=== PATIENT | female | born 1975 | race Hispanic/Latino ===

== ENCOUNTER 2025-03-06 07:27 | Emergency (ER) | payer BC, OTHER ==
[~2025-03-06] VITALS: Ht 160 cm; Wt 72.6 kg
--- NOTE | 2025-03-06 07:47 | NUR ---
suicidie precautions initiated. belongings collected by security. one to one sitter dariel martinez.
[2025-03-06] MEDS ORDERED: diazePAM 2 MG TAB PO ONE (08:00)
--- NOTE | 2025-03-06 08:02 | NUR ---
PATIENT'S MEDICATIONS SENT TO PHARMACY
[2025-03-06 08:03] LABS: NUCLEATED RED BLOOD CELLS 0.0 % (0.0-0.19); PLATELET COUNT (AUTO) 395.0 K/uL (130-400); RED BLOOD CELL COUNT(AUTO) 4.29 MIL/uL (4.00-5.50); RED CELL DISTRIBUTION WIDTH 16.3 % (11.0-15.5); WHITE BLOOD COUNT (AUTO) 4.0 K/uL (4.8-10.8)
[2025-03-06 08:19] LABS: CREATININE 1.0 mg/dL (0.5-1.0); GLOMERULAR FILTR. RATE CALC 69 mL/min (>90); GLUCOSE,RANDOM 96 mg/dL (70-105); SODIUM SERUM 140 mmol/L (136-145); UREA NITROGEN, BLOOD 14 mg/dL (7-18)
[2025-03-06 08:22] LABS: APPEARANCE,URINE CLEAR (CLEAR); GLUCOSE, URINE (UA) NEGATIVE (NEGATIVE); LEUKOCYTE ESTERASE ,URINE NEGATIVE Leu/uL (NEGATIVE); NITRATE,URINE NEGATIVE (NEGATIVE); OCCULT BLOOD,URINE NEGATIVE (NEGATIVE)
[2025-03-06 08:24] LABS: ALCOHOL, BLOOD 4 mg/dL (0-10); CREATINE KINASE, TOTAL 208 U/L (21-232)
[2025-03-06 08:25] LABS: ADD UA MICROSCOPIC NO
[2025-03-06 08:27] LABS: HCG,QUALITATIVE URINE NEGATIVE (NEGATIVE)
[2025-03-06 08:29] LABS: AMPHET/METH SCREEN,URINE NEGATIVE (NEGATIVE); BARBITURATE SCREEN, URINE NEGATIVE (NEGATIVE); CANNABINOID SCREEN,URINE NEGATIVE (NEGATIVE); COCAINE SCREEN,URINE NEGATIVE (NEGATIVE)
--- NOTE | 2025-03-06 08:38 | NUR ---
[facility] contacted for screener
--- NOTE | 2025-03-06 08:45 | ERN ---
General Chief Complaint: Suicidal Ideation Stated Complaint: SI Time Seen by MD: 07:32 Source: patient History of Present Illness Initial Comments My Patient, 49-year-old female, presented to the emergency department with complaints of worsening depression. She states that she was going to work but she felt extremely overwhelmed and decided to seek care in the ED. She takes b upropion for her depression but it is not helping her. Due to recent life stressors including passing away of a member of family, she has been recently depressed and unable to sleep at night. Timing/Duration: getting worse Severity: moderate Allergies: Coded Allergies: No Known Drug Allergies (Unverified Allergy, Unknown, 03/06/25) Past Medical History Past Medical History: Anxiety, Depression Past Surgical History: None Female( History) LMP: Feb 20, 2025 : 2 Para: 2 Aborts: 0 Constitutional: (-) chills, (-) diaphoresis, (-) fever, (-) malaise, (-) weakness, (-) other documentation EENTM: (-) eye pain, (-) blurred vision, (-) tearing, (-) double vision, (-) ear pain, (-) ear discharge, (-) nose pain, (-) nose congestion, (-) throat pain, (-) Throat swelling, (-) mouth pain, (-) tooth pain, (-) mouth swelling, (-) other documentation Respiratory: (-) cough, (-) orthopnea, (-) short of breath, (-) stridor, (-) wheezing, (-) other documentation Cardiovascular: (-) chest pain, (-) edema, (-) palpitations, (-) syncope, (-) dyspnea on exertion, (-) other documentation Gastrointestinal/Abdominal: (-) nausea, (-) vomiting, (-) diarrhea, (-) abdominal pain, (-) abdominal distention, (-) constipation, (-) rectal bleeding, (-) dark stool/melena, (-) other documentation Genitourinary: (-) vaginal discharge, (-) vaginal bleeding, (-) dysuria, (-) frequency, (-) hematuria, (-) pain, (-) other documentation Musculoskeletal: (-) Neck pain, (-) back pain, (-) Flank Pain, (-) joint pain, (-) joint swelling, (-) muscle pain, (-) muscle stiffness, (-) gout, (-) other documentation Skin: (-) laceration, (-) contusion, (-) abrasion, (-) abscess, (-) rash, (-) change in color, (-) change in hair, (-) change in nails, (-) diaphoresis, (-) dryness, (-) other documentation Neuro: (-) altered mental status, (-) headache, (-) syncope, (-) paralysis, (-) numbness, (-) seizure, (-) pre-existing deficit, (-) tremors, (-) weakness, (-) dizziness, (-) slurred speech, (-) vertigo, (-) other documentation Psych: (+) depression, (+) anxiety, (+) emotional problems Hematologic/Lymphatic: (-) anemia, (-) blood clots, (-) easy bleeding, (-) easy bruising, (-) swollen glands, (-) other documentation Physical Exam General Appearance: (+) moderate distress Orientation: (+) alert, (+) oriented x 3 Head/Face Trauma: No Eye: bilateral eye normal inspection Ear, Nose, Throat: (+) hearing grossly normal, (+) normal ENT inspection, (+) moist mucous membraine Neck: (+) normal inspection, (+) supple, (+) full range of motion Respiratory: (+) chest non-tender, (+) lungs clear, (+) well ventilated Heart: (+) regular, (+) no gallop Vascular: (+) no edema Gastrointestinal: (+) soft, (+) non-tender Back: (+) normal inspection, (+) no CVA tenderness, (+) no vertebral tenderness Extremities: (+) normal range of motion, (+) non-tender, (+) normal inspection Neurologic/Psychiatric: (+) normal speech, (+) no motor defecits, (+) no sensory deficits, (+) normal gait, (+) other documentation (Depressed and anxious mood) Skin: (+) normal color Results Laboratory and Microbiology Lab and Micro Result Laboratory Tests Test 03/06/25 07:40 03/06/25 07:59 Urine Color YELLOW (YELLOW) Urine Appearance CLEAR (CLEAR) Urine pH 5.5 (5.0-8.0) Urine Specific Boykins 1.026 (1.001-1.031) Urine Protein NEGATIVE mg/dL (NEGATIVE) Urine Glucose (UA) NEGATIVE mg/dL (NEGATIVE) Urine Ketones NEGATIVE mg/dL (NEGATIVE) Urine Occult Blood NEGATIVE (NEGATIVE) Urine Nitrate NEGATIVE (NEGATIVE) Urine Bilirubin NEGATIVE mg/dL (NEGATIVE) Urine Urobilinogen 0.2 mg/dL (0.2-1.0) Urine Leukocyte Esterase NEGATIVE Keena/uL Urine HCG, Qualitative NEGATIVE (NEGATIVE) Urine Opiates Screen NEGATIVE (NEGATIVE) Urine Barbiturates Screen NEGATIVE (NEGATIVE) Urine Phencyclidine Screen NEGATIVE (NEGATIVE) Urine Amphetamines Screen NEGATIVE (NEGATIVE) Urine Benzodiazepines Screen NEGATIVE (NEGATIVE) Urine Cocaine Screen NEGATIVE (NEGATIVE) Urine Marijuana (THC) Screen NEGATIVE (NEGATIVE) White Blood Count 4.0 K/uL (4.8-10.8) L Red Blood Count 4.29 MIL/uL (4.00-5.50) Hemoglobin 10.8 g/dL (12.0-16.0) L Hematocrit 33.4 % (36-48) L Mean Corpuscular Volume 77.9 fL (79-99) L Mean Corpuscular Hemoglobin 25.2 pg (27.0-33.0) L Mean Corpuscular Hemoglobin Concent 32.3 g/dL (32.0-36.0) Red Cell Distribution Width 16.3 % (11.0-15.5) H Platelet Count 395 K/uL (130-400) Mean Platelet Volume 10.2 fL (7.5-10.5) Nucleated Red Blood Cells 0.0 % (0.0-0.19) Sodium Level 140 mmol/L (136-145) Potassium Level 3.9 mmol/L (3.5-5.1) Chloride Level 103 mmol/L (101-111) Carbon Dioxide Level 27 mmol/L (21-32) Blood Urea Nitrogen 14 mg/dL (7-18) Creatinine 1.0 mg/dL (0.5-1.0) Glomerular Filtration Rate Calc 69 mL/min (>90) Random Glucose 96 mg/dL (70-105) Total Calcium 8.5 mg/dL (8.5-10.1) Total Creatine Kinase 208 U/L (21-232) Salicylates Level < 2.8 mg/dL (2.8-20.0) L Acetaminophen Level < 1 mcg/mL (10-30) L Serum Alcohol 4 mg/dL (0-10) Labs Reviewed?: Yes MDM MDM: Differential diagnosis: Psychiatric illness, chronic depression, suicidal ideation, Rationale: Tests considered and ordered secondary to shared decision making inc lude: Previous outside records reviewed: Old ER visits. Risk of complication and/or morbidity or mortality of patient management: None Medications-Per medication reconciliation Need for hospitalization: Patient does not meet criteria for hospitalization. Need for emergency major/minor surgery: No Patient is a 49-year-old female coming in complaining of depression and anxiety. Per patient this has been ongoing for several weeks. Patient was evaluated by psychiatric facility does not meet criteria for inpatient psych. Per psychiatric facility patient is a follow up with the [facility] the have medication evaluated and treated her accordingly ED Course Orders Procedure Category Date Status Time Suicide Precautions CPOE 03/06/25 Transmitted 07:48 Drug Screen Urine LAB 03/06/25 Complete 07:48 Cbc Without LAB 03/06/25 Complete Differential 07:48 Alcohol, Blood LAB 03/06/25 Complete 07:48 Salicylate LAB 03/06/25 Complete 07:48 Acetaminophen LAB 03/06/25 Complete 07:48 Urinalysis Profile LAB 03/06/25 Complete 07:48 ,Urine Test LAB 03/06/25 Complete 07:48 Creatine Kinase, Total LAB 03/06/25 Complete 07:48 Basic Metabolic Panel LAB 03/06/25 Complete 07:48 Diazepam 2 Mg Tab PHA 03/06/25 Complete (Valium 2 Mg Tab) 08:00 Hydroxyzine 25mg Tab PHA 03/06/25 Complete (Atarax 25mg Tab) 08:00 Current Medications Medications (Trade) Dose Ordered Sig/Prashant Route PRN Reason Start Time Stop Time Status Last Admin Dose Admin Diazepam (VALium 2 mg Tab) 2 mg ONCE ONCE PO 03/06/25 08:00 03/06/25 08:33 DC Hydroxyzine HCl (ATArax 25MG TAB) 25 mg ONCE ONCE PO 03/06/25 08:00 03/06/25 08:01 DC 03/06/25 08:37 Vital Signs Date Time Temp Pulse Resp B/P (MAP) Pulse Ox O2 Delivery O2 Flow Rate FiO2 03/06/25 11:23 97.9 65 16 106/79 99 Room Air* 0 21 03/06/25 09:01 97.9 59 12 113/70 98 Room Air* 0 21 03/06/25 07:31 97.2 90 18 117/78 97 DX & DISP Disposition: Discharge Departure Impression: Primary Impression: Psychiatric illness Condition: Stable Additional Instructions: FOLLOW-UP WITH PRIMARY CARE PROVIDER IN 1 TO 2 DAYS. TAKE MEDICATIONS DIRECTED HERE IN THE EMERGENCY ROOM. OKAY TO CONTINUE HOME MEDICATIONS UNLESS OTHERWISE DISCUSSED DURING YOUR VISIT IN THE EMERGENCY ROOM TODAY. RETURN TO YOUR NEAREST EMERGENCY ROOM IF SYMPTOMS WORSEN OR IF THERE IS NO IMPROVEMENT. C ALL 911 IF YOU NEED IMMEDIATE ASSISTANCE. TAKE TYLENOL [id number] NEEDED AND IF NO CONTRAINDICATIONS ARE PRESENT. INCREASE ORAL HYDRATION. A WOUND CULTURE OR URINE CULTURE WAS ORDERED HERE IN THE EMERGENCY ROOM DEPARTMENT PLEASE FOLLOW-UP WITH PRIMARY CARE PROVIDER AND ADVISE THEM TO GET REPORTS FROM OUR FACILITY. IF YOU HAD ANY CHARLI WRAP/SPLINTS THAT WERE APPLIED HERE, PLEASE DO NOT REMOVE THEM UNTIL YOU SEE YOUR PRIMARY CARE OR SPECIALTY. Referrals: Referrals: SELF,REFERRAL (PCP) BIBIANA PETERS MD Time of Disposition: 12:02 AVELINO ZARATE MD Mar 06, 2025 08:45 MALATHI GARZA MD Mar 06, 2025 12:02
--- NOTE | 2025-03-06 10:25 | NUR ---
tropical screener Dione at bedside
--- NOTE | 2025-03-06 11:58 | NUR ---
PER SCREENER PATIENT DOES NOT MEET CRITERIA FOR PLACEMENT. CLEARED BY [facility]. DR GARZA MADE AWARE.
[2025-03-06 12:02] VITALS: BP 96/69; PULSE 64; RESP 14; TEMP 97.9; O2SAT 99
--- NOTE | 2025-03-06 12:02 | NUR ---
PATIENT BELONGINGS RETURNED FROM SECURITY AND PHARMACY
== END 2025-03-06 12:12 | disposition home or self-care (01) ==
LOC: EDH 07:27
DX: F99 Mental disorder, not otherwise specified (principal); F32.A Depression, unspecified; F41.9 Anxiety disorder, unspecified; Z79.899 Other long term (current) drug therapy
CPT/HCPCS: 99284; 82550; 80048; 80305; 85027; 81025; 36415; 81003; G0481